=== PATIENT | female | born 1935 | race Caucasian/White ===

== ENCOUNTER 2017-10-19 14:13 | Inpatient (IN) | payer MEDICARE, OTHER ==
[2017-10-19] MEDS ORDERED: Acetaminophen 325 MG TAB ONE (15:32)
[2017-10-19 17:10] LABS: Troponin I Less than 0.010 ng/mL (< 0.028)
--- NOTE | 2017-10-19 17:40 | HP ---
PRIMARY CARE PHYSICIAN: Deric Coates M.D. CHIEF COMPLAINT: Left arm and left weakness with difficulty with her speech. HISTORY OF PRESENTING ILLNESS: Ms. Mckay is a very pleasant 82-year-old female who volunteers at [facility], was brought in by her family with the above-mentioned complaints. History is mainly obtained by the patient herself who was rather reluctant historian. It is supplemented by her son present in the room. Electronic medical records have been reviewed. According to Ms. Mckay, she has been feeling fine and she does not think that she had any weakness in her arm or leg. Her son reports that the staff at the [facility] noticed that she was draggi ng her left leg and later she was found to have difficulty raising her left arm. She was also found to have difficulty reading the sentence from a text book. She was brought to [facility] and she was found to be hemodynamically stable there. She underwent a CT scan of the head which did not show any acute changes and she was transferred to our facility for further evaluation. The david ent denies any prior symptoms. She denies any recent illnesses. She denies any problems with her sp eech or swallowing or any muscle weakness or paraesthesias. Her son does report that she was complai mitzy of some left arm tingling. Upon presentation to [facility], her NIH score was 4. She was given 325 mg of aspirin a nd 1 liter of IV fluids prior to her transfer over here. She is now being admitted for further ca p. Her symptoms have almost completely resolved. Her son does noticed that she might still have a l ittle bit of facial droop. She will be admitted to the stroke floor for CVA/TIA workup. PAST MEDICAL HISTORY: Hypertension, dyslipidemia, history of overactive bladder. PAST SURGICAL HISTORY: 1. Pubovaginal sling with anterior repair and cystoscopy. 2. section. PSYCHIATRIC HISTORY: Anxiety. SOCIAL HISTORY: She lives with her son. 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 She is very active and independent with her ADLs and IADLs. No history of drug, tobacco or alcohol abuse. FAMILY HISTORY: No significant family history of stroke according to the patient. No premature eduar nary artery disease. ALLERGIES: No known medication allergies. CURRENT MEDICATIONS: Include aspirin 81 mg daily, verapamil 300 mg daily, Myrbetriq 25 mg daily, ser traline 50 mg a day, pramipexole 1 mg at bedtime, simvastatin 10 mg daily. REVIEW OF SYSTEMS: The following complete review of systems was negative, unless otherwise mentioned in the HPI or below: Constitutional: Weight loss or gain, ability to conduct usual activities. Skin: Rash, itching. Eyes: Double vision, pain. ENT/Mouth: Nose bleeding, neck stiffness, pain, tenderness. Cardiovascular: Palpitations, dyspnea on exertion, orthopnea. Respiratory: Shortness of breath, wheezing, cough, hemoptysis, fever or night sweats. Gastrointestinal: Poor appetite, abdominal pain, heartburn, nausea, vomiting, constipation, or diarr hea. Genitourinary: Urgency, frequency, dysuria, nocturia. Musculoskeletal: Pain, swelling. Neurologic/Psychiatric: Anxiety, depression. Allergy/Immunologic: Skin rash, bleeding tendency. It is negative except for those mentioned in the history and physical. LABORATORY DATA AND IMAGIN. CBC shows WBCs at 6 with 72% neutrophils, hemoglobin is 12.6, hematocrit 36.6, platelet count of 233. PT, PTT and INR within normal limits. 2. Serum chemistry showed blood sugar at 145, otherwise unremarkable. Cardiac enzymes are within no rmal limits. 3. CT scan of the brain done in [facility] reviewed by myself does not show any evidenc e of hemorrhage or acute infarction. 4. Chest x-ray by my review has no evidence of pulmonary edema, infiltrate or effusions. 5. A 12-lead EKG by my review shows slow RV progression with normal sinus rhythm at 71 beats per min iqugmiut. PHYSICAL EXAMINATION: VITAL SIGNS: Upon presentation include blood pressure 137/68, pulse 80, respirations 18, saturating 97% on room air. GENERAL: No acute distress, awake, alert, oriented x3. The patient does appear somewhat slow. It i s difficult to ascertain whether this is voluntary or because of the effects of possible stroke. HEENT: Mucous membrane is moist and pink. No oropharyngeal exudate or erythema. Head is normocepha lic, atraumatic. Pupils are equal and reactive to light and accommodation. Extraocular movements in tact. NECK: Supple without any lymphadenopathy, JVD or bruit. CHEST: Clear to auscultation without any wheezing, rales or rhonchi. Rate and rhythm is regular wit hout any murmur, rubs or gallops. ABDOMEN: Soft, nontender, nondistended, positive bowel sounds. NEUROLOGIC: Cranial nerves II-XII are grossly intact. No sensory deficits noticed. No facial droop apparent to myself. She was noted to have left arm drift in the [facility] which has r esolved. Muscle strength is 5/5 in all 4 extremities. Lujjvr-dt-eoiw testing is intact bilaterally. The patient was noticed to have left-sided neglect in the [facility]. SKIN: Free of any rashes or bruises. Feels warm and dry to touch. PSYCHIATRIC: Normal affect. IMPRESSION AND PLAN: 1. Transient ischemic attack. The patient's symptoms are quite consistent with a transient ischemic attack. At this time, she will be admitted to the stroke floor for further workup. We will order a n MRI of her brain as well as transthoracic echocardiogram and carotid ultrasound. We will request S troke Team and Neurology evaluation as well. Frequent neuro checks have been ordered. She will be c ontinued on full dose aspirin and we will add statin as well. We will also order lipid panel. Fall and aspiration precautions will be monitored. The patient has passed a bedside swallow at this time. 2. History of hypertension. At this time, we will hold verapamil to allow for permissive hypertensi on. Monitor blood pressure closely. 3. History of restless leg syndrome. Continue with her home medication of pramipexole for now. 4. Deep venous thrombosis and gastrointestinal prophylaxis. 5. Code status: FULL CODE. Discussed with the patient and her son present in the room. 6. Add p.r.n. medication orders. 7. Disposition: The patient is currently being admitted under observation status for transient isch emic attack/cerebrovascular accident workup. Further management will depend upon her clinical course and results of these studies as mentioned above.
[2017-10-19 20:00] LABS: Troponin I Less than 0.010 ng/mL (< 0.028)
--- NOTE | 2017-10-19 20:44 | CT ---
NONCONTRAST HEAD CT: Comparison: 10-19-17 at 12:04 p.m. Technique: Noncontrast head CT is performed from skull base to skull vertex. FINDINGS: No parenchymal hemorrhage. No extraaxial hematoma. No midline shift. Basilar cisterns are patent. Brain volume is age appropriate. Cortical howe white matter differentiation is preserved. Ventricles and sulci are patent and symmetric. White matter hypodensities due to chronic small vessel ischemic changes are noted. Calvarium is intact. Adequate aeration of the sinuses and mastoid air cells. Common carotid atheroscl erosis is identified. IMPRESSION: 1. No acute intracranial process. 2. No significant interval change. 3. Results of study discussed with Dr. Han 10-19-17 at 8:05 p.m. Marie CR. POS: EMANUEL
[2017-10-19] MEDS ORDERED: hydrALAZINE 20 MG/ML VIAL SLOW IVP PRN (20:49)
[2017-10-19] MEDS ORDERED: Diabetic Tussin 200 MG/10 ML UDCUP PO PRN (20:49)
[2017-10-19] MEDS ORDERED: Senokot 8.6 MG TAB PO PRN (20:49)
[2017-10-19] MEDS ORDERED: Benzonatate 100 MG CAP PO PRN (20:49)
[2017-10-19] MEDS ORDERED: traMADol HCl 50 MG TAB PO PRN (20:49)
[2017-10-19] MEDS ORDERED: Nitroglycerin 0.4 MG TAB (25 Tab Bottle) SL PRN (20:49)
[2017-10-19] MEDS ORDERED: Mag-Al 1200 mg/1200 mg/30 ML UDCUP PO PRN (20:49)
[2017-10-19] MEDS ORDERED: Acetaminophen 325 MG TAB PO PRN (20:49)
[2017-10-19] MEDS ORDERED: Bisacodyl 5 MG TAB PO PRN (20:49)
[2017-10-19] MEDS ORDERED: Loratadine 10 MG TAB PO PRN (20:49)
[2017-10-19] MEDS ORDERED: Calcium Carbonate 500 MG ChewTAB PO PRN (20:49)
[2017-10-19] MEDS ORDERED: Ondansetron HCl/PF 4 MG/2 ML Vial IVP PRN (20:49)
[2017-10-19] MEDS: Atorvastatin Calcium 20 MG TAB PO SCH (23:09)
[2017-10-19] MEDS: Pramipexole Di-HCl 1 MG TAB PO SCH (23:09)
[2017-10-20 05:40] LABS: #Eosinphils 0.1 thou/uL (0.0-0.7); #Lymphocytes 1.2 thou/uL (1.20-3.40); #Monocytes 0.4 thou/uL (0.11-0.59); #Neutrophils 3.4 thou/uL (1.40-6.50); %Basophils 0.2 % (0.0-1.0); %Eosinophils 2.2 % (0.0-10.0); %Lymphocytes 23.6 % (21.0-51.0); %Monocytes 8.6 % (0.0-10.0); Hematocrit 36.6 % (36.0-47.0); Mean Platelet Volume 7.3 fL (7.4-10.4); Red Blood Cell (RBC) Count 3.84 mill/uL (4.20-5.40); White Blood Cell (WBC) Count 5.1 thou/uL (4.8-10.8)
[2017-10-20 05:59] LABS: Anion Gap 10 mmol/L (10-20); BUN (Urea Nitrogen) 12 mg/dL (9.8-20.1); Calc. Creatinine Clearance 60 mL/min (70-130); Calcium 8.9 mg/dL (7.8-10.44); Carbon Dioxide 26 mmol/L (23-31); Chloride 108 mmol/L (98-107); Estimated GFR-MDRD 85
--- NOTE | 2017-10-20 08:11 | ULT ---
ULTRASOUND WITH DOPPLER DUPLEX CAROTID: Date: 10-20-17 History: 82-year-old female with TIA. Technique: Grayscale, color flow, and spectral analysis of major arteries of neck. FINDINGS: There is moderate plaque at the proximal right internal carotid artery, including carotid origin, cau sing shadowing and focal stenosis. There is mild, small, multifocal plaque at the distal left common carotid, but not in the left proximal internal carotid. Highest peak systolic velocities in the internal carotid arteries are 270 cm/s on the right, and 85 c m/s on the left. The ICA/CCA ratios are 3.7 on the right and 1.0 on the left. The end diastolic velocities in the internal carotid arteries are 70 cm/s on the right and 20 cm/s on the left. The vertebral artery flow is antegrade bilaterally. IMPRESSION: 1. Atheromatous plaque at the origin of the right internal carotid artery producing high velocities s uggestive of stenosis that is at least moderate, and possibly severe. 2. Consider further evaluation with CT angiogram of the neck with contrast. POS: EMANUEL
[2017-10-20] MEDS ORDERED: Aspirin 325 mg Enteric Coated Tablet PO SCH (09:00)
[2017-10-20] MEDS: Enoxaparin Sodium 40 MG/0.4 ML SYRINGE SC SCH (10:41)
--- NOTE | 2017-10-20 11:09 | CT ---
CT ANGIOGRAM NECK WITH CONTRAST: Date: 10/20/17 HISTORY: 82-year-old female with right internal carotid artery stenosis. Left foot weakness. Possible CVA. TECHNIQUE: IV contrast injection of 100 mL of Isovue-370. Arterial bolus chasing technique scan performed from aortopulmonic window to level of mid orbits. Cor onal and sagittal 3D MIP reconstructions performed. FINDINGS: Multilevel severe degenerative disc disease and severe degenerative facet disease, of the cervical sp ine. Aortic arch: Atherosclerotic calcification without aneurysm or dissection. Brachiocephalic: Moderate calcified plaque without high grade stenosis. Right subclavian: Prominent calcified plaque proximally without high grade stenosis. Mid to distal p ortion obscured by streak artifact from adjacent dense contrast bolus in the right subclavian vein. Left subclavian: Large calcified plaque at origin causing severe stenosis. No high grade stenosis in the rest of the left subclavian. Right common carotid: Tortuous proximal portion. No high grade stenosis. Right internal carotid: As demonstrated on the ultrasound, there is moderately heavy calcified plaqu e at the origin, but this causes only approximately 40% stenosis. Instead, there is an approximately 1.5 cm long segment of proximal right internal carotid artery dist al to the origin which is irregular and narrowed due to noncalcified (soft) plaque. Of this, there is a focal short segment of severe, approximately 75-85%, stenosis caused by the circumferential noncal cified plaque. Distal to this, the rest of the cervical right internal carotid has no high grade sten osis. Left common carotid: Scattered calcified plaque at mid common carotid and distal common carotid. No high grade stenosis. Left internal carotid: Noncalcified plaque at carotid bulb causes mild stenosis at origin. No high g rade stenosis of proximal internal carotid. The distal cervical portion of the left internal carotid artery takes a sharp, acute angle retropharyngeal turn at the C1-2 level, resulting in a kink (rather than plaque) that causes approximately 50% decrease in the transverse diameter of the lumen (best se en on coronal image 45 of 90, series 300). Right vertebral: Dominant. No high grade stenosis. Left vertebral: Proximally diminutive with atherosclerotic irregularity and diffusely moderately sma ll caliber from its origin to approximately the C6 level, distal to which the left vertebral artery c ontinues to have atherosclerotic irregularity, but is slightly larger caliber. IMPRESSION: 1)Severe, approximately 75-80%, stenosis at proximal right internal carotid artery. 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 3)Diffuse mild-moderate stenosis due to diffuse atherosclerotic disease throughout the left proximal vertebral artery. 4)Severe cervical spondylosis. POS: EMANUEL
[2017-10-20] MEDS: cloNIDine 0.1 MG TAB PO PRN (11:30)
[2017-10-20 12:55] LABS: Bilirubin Negative (Negative); Blood, Urine Negative (Negative); Glucose, Urine (Dipstick) Negative (Negative); Ketone, Urine Trace mg/dL (Negative); Nitrite Negative (Negative); Protein, Urine (Dipstick) Negative (Neg-Trace); Urobilinogen 0.2 mg/dL (0.2-1.0)
--- NOTE | 2017-10-20 13:07 | PDOC.PN ---
- Subjective Encounter Start Date: 10/20/17 Encounter Start Time: 13:06 Subjective: feels well.had 1 episode of dysphagia last night prompting Code green -: repeat Brain CT w/o acute chnages. -: pt ate meal w/o difficulty today - Objective MAR Reviewed: Yes Vital Signs & Weight: Vital Signs (12 hours) Temp Pulse Pulse Pulse Resp BP BP 10/20/17 11:30 185/77 H 10/20/17 11:15 97.6 F 80 18 10/20/17 10:45 76 74 182/82 H 10/20/17 10:44 76 74 182/82 H 10/20/17 08:00 98.1 F 90 18 10/20/17 07:10 98.1 F 90 18 10/20/17 04:09 98.4 F 74 16 BP BP Pulse Ox 10/20/17 11:30 10/20/17 11:15 185/77 H 95 10/20/17 10:45 193/93 H 10/20/17 10:44 193/93 H 10/20/17 08:00 10/20/17 07:10 195/75 H 96 10/20/17 04:09 144/61 H 94 L Weight Weight 124 lb 4.8 oz I&O: 10/19/17 10/20/17 10/21/17 06:59 06:59 06:59 Intake Total 70 Balance 70 Result Diagrams: 10/20/17 05:16 10/20/17 05:16 Radiology Reviewed by me: Yes (Carotid -R ICA stenosis.CTA neck-high grade R ICA stenosis) Phys Exam - Physical Examination Constitutional: NAD HEENT: PERRLA, moist MMs, sclera anicteric, oral pharynx no lesions Neck: no nodes, no JVD, supple, full ROM Respiratory: no wheezing, no rales, no rhonchi, clear to auscultation bilateral Cardiovascular: RRR, no significant murmur Gastrointestinal: soft, non-tender, no distention, positive bowel sounds Musculoskeletal: no edema, pulses present Neurological: non-focal, normal sensation, moves all 4 limbs Psychiatric: normal affect, A&O x 3 Skin: no rash Dx/Plan (1) TIA (transient ischemic attack) Status: Acute (2) HTN (hypertension) Code(s): I10 - ESSENTIAL (PRIMARY) HYPERTENSION Status: Chronic (3) HLD (hyperlipidemia) Code(s): E78.5 - HYPERLIPIDEMIA, UNSPECIFIED Status: Chronic - Plan cont ASA,statin.MRI pending. -: Consult CTS for R ICA stenosis.Likley Left cortical CVA -: Cont BP monitoring.Verapamil on hold for permissive HTN -: prn meds on board.hemodynamically stable. -: Neurology recs requested * . Review of Systems - Review of Systems Constitutional: negative: Fever, Chills, Sweats, Weakness, Malaise, Other Respiratory: negative: Cough, Dry, Shortness of Breath, Hemoptysis, SOB with Excertion, Pleuritic Pain, Sputum, Wheezing Cardiovascular: negative: Chest Pain, Palpitations, Orthopnea, Paroxysmal Noc. Dyspnea, Edema, Light Headedness, Other Gastrointestinal: negative: Nausea, Vomiting, Abdominal Pain, Diarrhea, Constipation, Melena, Hematochezia, Other Genitourinary: negative: Dysuria, Frequency, Incontinence, Hematuria, Retention , Other Musculoskeletal: negative: Neck Pain, Shoulder Pain, Arm Pain, Back Pain, Hand Pain, Leg Pain, Foot Pain, Other Neurological: negative: Weakness, Numbness, Incoordination, Change in Speech, Confusion, Seizures, Other - Medications/Allergies Allergies/Adverse Reactions: Allergies Allergy/AdvReac Type Severity Reaction Status Date / Time No Known Allergies Allergy Verified 10/20/17 04:31 Medications: Current Medications Acetaminophen (Tylenol) 650 mg PO Q4H PRN PRN Reason: Headache/Fever or Pain Al Hydroxide/Mg Hydroxide (Maalox) 30 ml PO Q6H PRN PRN Reason: Heartburn or Indigestion Aspirin (Ecotrin) 325 mg PO DAILY [facility] Last Admin: 10/20/17 10:40 Dose: 325 mg Atorvastatin Calcium (Lipitor) 20 mg PO HS [facility] Last Admin: 10/19/17 23:09 Dose: Not Given Benzonatate (Tessalon) 100 mg PO Q4H PRN PRN Reason: Cough Bisacodyl (Dulcolax) 10 mg PO DAILYPRN PRN PRN Reason: Constipation Calcium Carbonate (Tums) 1,000 mg PO Q4H PRN PRN Reason: Heartburn or Indigestion Clonidine (Catapres) 0.1 mg PO Q4H PRN PRN Reason: Systolic BP > 180 Last Admin: 10/20/17 11:30 Dose: 0.1 mg Enoxaparin Sodium (Lovenox) 40 mg SC 0900 [facility] Last Admin: 10/20/17 10:41 Dose: 40 mg Guaifenesin (Robitussin Sf) 200 mg PO Q4H PRN PRN Reason: Cough Hydralazine HCl (Apresoline) 10 mg SLOW IVP Q4H PRN PRN Reason: Systolic BP > 180 Influenza Virus Vaccine (Fluzone High-Dose 2016- Syr) 0.5 ml IM .ONCE ONE Stop: 10/21/17 09:01 Loratadine (Claritin) 10 mg PO DAILYPRN PRN PRN Reason: Sinus Symptoms Mirabegron (Myrbetriq Er) 25 mg PO DAILY [facility] Last Admin: 10/20/17 12:31 Dose: 25 mg Nitroglycerin (Nitrostat) 0.4 mg SL Q5MIN PRN PRN Reason: Chest Pain Ondansetron HCl (Zofran) 4 mg IVP Q6H PRN PRN Reason: Nausea/Vomiting Pneumococcal Polyvalent Vaccine (Pneumovax 23) 0.5 ml IM .ONCE ONE Stop: 10/21/17 09:01 Pramipexole Dihydrochloride (Mirapex) 1 mg PO HS [facility] Last Admin: 10/19/17 23:09 Dose: Not Given Senna (Senokot) 2 tab PO HSPRN PRN PRN Reason: Constipation Sertraline HCl (Zoloft) 50 mg PO DAILY [facility] Last Admin: 10/20/17 10:39 Dose: 50 mg Tramadol HCl (Ultram) 50 mg PO Q4H PRN PRN Reason: Moderate Pain (4-6)
[2017-10-20] MEDS ORDERED: Iopamidol 370 76% 100 ML VIAL ONE (14:00)
--- NOTE | 2017-10-20 16:20 | MRI ---
MRI OF BRAIN WITHOUT CONTRAST 10/20/17 Multiplanar and multisequential imaging of the brain obtained. HISTORY: TIA. Confusion. FINDINGS: Mild cortical atrophy. Moderately severe chronic ischemic white matter changes. There is ventriculome chris which appears slightly disproportionate to the atrophy. There are numerous foci of restricted diffusion throughout the right cerebral hemisphere. Many of the se are subcortical. Several are deep white matter. There are a few tiny cortical foci as well. In gen eral, these appear to be consistent with watershed type infarcts. These infarcts are related to the r ight internal carotid artery stenosis noted on recent ultrasound. These could represent plaque relate d emboli from the right internal carotid artery. No hemorrhage. IMPRESSION: 1. Numerous tiny infarcts seen in the right cerebral hemisphere. There are some cortical foci se en in the posterior temporal and parietal lobe region on the right. There are subcortical and deep wh ite matter infarcts. These are related to the right internal carotid artery stenosis. Suspect plaque related emboli from this right internal carotid stenosis. 2. Cortical atrophy and moderate severe chronic ischemic white matter change. 3. Mild ventriculomegaly. POS: TPC
[2017-10-20 17:54] VITALS: BMI 20.5
--- NOTE | 2017-10-20 19:53 | CON ---
DATE OF CONSULTATION: 10/20/2017 CONSULTING PHYSICIAN: Hospitalist Service. IMPRESSION: 1. Right thromboembolic stroke secondary to carotid stenosis of 75-85% on the right. 2. Hypertension. 3. Hyperlipidemia. PLAN: 1. Add aspirin. 2. CT surgery follow up for nonemergent carotid endarterectomy. Ms. Mckay is an 82-year-old white female who is quite functional and independent. She developed acut e onset of left-sided weakness that lasted for several hours. She came to the hospital for evaluatio n. Her workup subsequently discovered evidence of some patchy damage in the right MCA territory. He r carotid ultrasound suggested a right carotid stenosis which was followed up by a CTA. This confirm ed evidence of 75-85% stenosis in the right internal carotid artery. She has not had any other TIA s ymptoms in the past. PAST MEDICAL HISTORY: Hypertension. ALLERGIES: None. SOCIAL HISTORY: No tobacco or alcohol use. FAMILY HISTORY: Noncontributory. REVIEW OF SYSTEMS: Only positive for some of sensation of tightness in her throat. PHYSICAL EXAMINATION: GENERAL: She is a healthy appearing elderly lady, appears younger than her age. HEENT: Pupils equal and reactive. Conjunctivae clear. Oropharynx clear. NECK: Supple. EXTREMITIES: No cyanosis. NEUROLOGIC: She is alert and appropriate. Her speech is fluent and clear. Exam is nonfocal. Images were reviewed. LABORATORY STUDIES: Unremarkable CBC and serum chemistries. SUMMARY: Given the evidence of some focal damage, I would not proceed with an urgent carotid endarte rectomy, I suggest waiting at least 2-3 weeks before proceeding. She can continue antiplatelet thera py and I will be happy to follow up with her as an outpatient.
[2017-10-20] MEDS: Atorvastatin Calcium 20 MG TAB PO SCH (21:23)
[2017-10-20] MEDS: Pramipexole Di-HCl 1 MG TAB PO SCH (21:23)
--- NOTE | 2017-10-20 22:24 | CON ---
DATE OF CONSULTATION: 10/20/2017 REASON FOR CONSULTATION: Evaluate patient, status post cerebrovascular accident with right carotid s tenosis. HISTORY OF PRESENT ILLNESS: Ms. Mckay is a delightful 82-year-old woman who was admitted with a hist ory of left leg weakness. She was dragging while walking and was brought to the hospital by her son. CT scan x2 initially were negative. She has had an MRI of her brain, which shows multiple right he mispheric infarcts. Carotid ultrasound has been performed, which shows a peak systolic velocity in t he right internal carotid artery of 270 cm per second. Peak systolic velocity in the left internal c arotid artery is 85 cm per second. This was followed by the CT angiogram, which shows a significant right internal carotid artery stenosis extending up towards the angle of her jaw. Currently, she is asymptomatic. Her leg symptoms have completely resolved. She has no other neurolo gic findings. I have been asked to see her to discuss carotid endarterectomy and medical treatment i n the interim. PAST MEDICAL HISTORY: 1. Hypertension. 2. Dyslipidemia. 3. History of overactive bladder. PAST SURGICAL HISTORY: 1. Bladder suspension. 2. . SOCIAL HISTORY: She lives with her son. She is independent and drives. She does not use any tobacc o or alcohol. ALLERGIES: None. MEDICATIONS AT HOME: 1. Aspirin 81 mg q. day. 2. Verapamil 300 mg q. day. 3. Myrbetriq 25 mg q. day. 4. Sertraline 50 mg q. day. 5. Pramipexole 1 mg at bedtime. 6. Zocor 10 mg q. day. REVIEW OF SYSTEMS: Ten-point review of systems performed and is negative except as stated above. PHYSICAL EXAMINATION: GENERAL: This is a very pleasant elderly woman resting comfortably in bed, post MRI. VITAL SIGNS: Height 5 feet 5 inches, weighs 123 pounds, BSA is 1.60. Temperature is 98.3, pulse is 71 and regular, blood pressure is 159/67. HEENT: Sclerae nonicteric. Pupils are equal and round bilaterally. NECK: There is no adenopathy. She has a right carotid bruit. CHEST: Clear bilaterally. HEART: Rhythm is regular, without murmur. ABDOMEN: Soft and nontender with no mass. EXTREMITIES: No cyanosis, clubbing or edema. VASCULAR: She has palpable carotid, radial, femoral and dorsalis pedis bilaterally. VENOUS: There are no venous varicosities or venous stasis changes. PSYCHIATRIC: The patient is awake, alert and oriented to person, place and time. NEUROLOGIC: There are no motor or sensory deficits on my exam. ASSESSMENT AND PLAN: This is a very pleasant 82-year-old woman, status post cerebrovascular accident in the right hemispheric. She has a right carotid stenosis by CT angiogram. I would recommend aspi rin 81 mg q. day, Plavix 75 mg q. day and a statin. These have all been started. I will see her jeniffer k in 2-3 weeks in the office. If she has continued to do well, we will plan on carotid endarterectom y at that time.
[2017-10-21] MEDS: cloNIDine 0.1 MG TAB PO PRN (05:25)
[2017-10-21] MEDS ORDERED: FLU VACC TS2017-18 (>65YR) 0.5 ML SYRINGE IM ONE (09:00)
[2017-10-21] MEDS ORDERED: Clopidogrel Bisulfate 75 MG TAB PO SCH (09:00)
[2017-10-21] MEDS ORDERED: Aspirin 81 mg Enteric Coated Tablet PO SCH (09:00)
[2017-10-21] MEDS: Enoxaparin Sodium 40 MG/0.4 ML SYRINGE SC SCH (09:09)
--- NOTE | 2017-10-21 13:05 | PDOC.PN ---
- Subjective Encounter Start Date: 10/21/17 Encounter Start Time: 07:00 Pt seen for followup re: ischemic CVA. Denies chest pain, shortness of breath, fevers or chills. - Objective MAR Reviewed: Yes Vital Signs & Weight: Vital Signs (12 hours) Temp Pulse Resp BP BP Pulse Ox 10/21/17 11:05 98.1 F 76 18 142/70 H 95 10/21/17 07:10 97.9 F 84 18 149/57 H 96 10/21/17 05:25 183/62 H 10/21/17 03:39 99.1 F 92 18 183/62 H 93 L Weight Weight 123 lb 6.4 oz I&O: 10/20/17 10/21/17 10/22/17 06:59 06:59 06:59 Intake Total 970 Balance 970 Result Diagrams: 10/20/17 05:16 10/20/17 05:16 EKG Reviewed by me: Yes (Tele: NSR) Phys Exam - Physical Examination Constitutional: NAD HEENT: moist MMs, oral pharynx no lesions Neck: supple Respiratory: clear to auscultation bilateral Cardiovascular: RRR Gastrointestinal: soft, non-tender Musculoskeletal: pulses present Neurological: moves all 4 limbs Psychiatric: normal affect Skin: no rash Dx/Plan (1) Ischemic cerebrovascular accident (CVA) Code(s): I63.9 - CEREBRAL INFARCTION, UNSPECIFIED Status: Acute (2) Carotid stenosis Code(s): I65.29 - OCCLUSION AND STENOSIS OF UNSPECIFIED CAROTID ARTERY Status : Acute (3) HLD (hyperlipidemia) Code(s): E78.5 - HYPERLIPIDEMIA, UNSPECIFIED Status: Chronic (4) HTN (hypertension) Code(s): I10 - ESSENTIAL (PRIMARY) HYPERTENSION Status: Chronic - Plan plan discussed w/ family, PT/OT, out of bed/ambulate, DVT proph w/lovenox * . Continue aspirin, plavix and statin. Monitor vital signs, titrate antihypertensives as needed. To followup with CV surgery as outpatient. Rehab eval. Review of Systems - Review of Systems Respiratory: negative: Cough, Dry, Shortness of Breath, Hemoptysis, SOB with Excertion, Pleuritic Pain, Sputum, Wheezing Cardiovascular: negative: Chest Pain, Palpitations, Orthopnea, Paroxysmal Noc. Dyspnea, Edema, Light Headedness Neurological: negative: Weakness, Numbness, Incoordination, Change in Speech, Confusion, Seizures - Medications/Allergies Allergies/Adverse Reactions: Allergies Allergy/AdvReac Type Severity Reaction Status Date / Time No Known Allergies Allergy Verified 10/20/17 04:31 Medications: Current Medications Acetaminophen (Tylenol) 650 mg PO Q4H PRN PRN Reason: Headache/Fever or Pain Al Hydroxide/Mg Hydroxide (Maalox) 30 ml PO Q6H PRN PRN Reason: Heartburn or Indigestion Aspirin (Ecotrin) 81 mg PO DAILY [facility] Last Admin: 10/21/17 09:09 Dose: 81 mg Atorvastatin Calcium (Lipitor) 20 mg PO HS [facility] Last Admin: 10/20/17 21:23 Dose: 20 mg Benzonatate (Tessalon) 100 mg PO Q4H PRN PRN Reason: Cough Bisacodyl (Dulcolax) 10 mg PO DAILYPRN PRN PRN Reason: Constipation Calcium Carbonate (Tums) 1,000 mg PO Q4H PRN PRN Reason: Heartburn or Indigestion Clonidine (Catapres) 0.1 mg PO Q4H PRN PRN Reason: Systolic BP > 180 Last Admin: 10/21/17 05:25 Dose: 0.1 mg Clopidogrel Bisulfate (Plavix) 75 mg PO DAILY [facility] Last Admin: 10/21/17 09:09 Dose: 75 mg Enoxaparin Sodium (Lovenox) 40 mg SC 0900 [facility] Last Admin: 10/21/17 09:09 Dose: 40 mg Guaifenesin (Robitussin Sf) 200 mg PO Q4H PRN PRN Reason: Cough Hydralazine HCl (Apresoline) 10 mg SLOW IVP Q4H PRN PRN Reason: Systolic BP > 180 Loratadine (Claritin) 10 mg PO DAILYPRN PRN PRN Reason: Sinus Symptoms Mirabegron (Myrbetriq Er) 25 mg PO DAILY [facility] Last Admin: 10/21/17 09:10 Dose: 25 mg Nitroglycerin (Nitrostat) 0.4 mg SL Q5MIN PRN PRN Reason: Chest Pain Ondansetron HCl (Zofran) 4 mg IVP Q6H PRN PRN Reason: Nausea/Vomiting Pramipexole Dihydrochloride (Mirapex) 1 mg PO HS [facility] Last Admin: 10/20/17 21:23 Dose: 1 mg Senna (Senokot) 2 tab PO HSPRN PRN PRN Reason: Constipation Sertraline HCl (Zoloft) 50 mg PO DAILY [facility] Last Admin: 10/21/17 09:09 Dose: 50 mg Tramadol HCl (Ultram) 50 mg PO Q4H PRN PRN Reason: Moderate Pain (4-6)
[2017-10-21 15:36] VITALS: BP 149/69; TEMP 97.6
[2017-10-21] MEDS ORDERED: Potassium Chloride 20 MEQ TAB PO SCH (17:00)
--- NOTE | 2017-10-22 06:11 | DIS ---
PRIMARY CARE PHYSICIAN: Deric Coates M.D. DISCHARGE DIAGNOSES: 1. Ischemic cerebrovascular accident. 2. Right internal carotid artery stenosis. CONDITION OF PATIENT AT THE TIME OF DISCHARGE: Stable. I assessed Ms. Mckay on the day of discharge . Please refer to my daily progress note for further information regarding this face to face encount er. CONSULTATIONS DURING THIS HOSPITALIZATION: Neurology, Dr. Roberto Bañuelos and Cardiovascular Surgery, Dena Mckay. DISCHARGE MEDICATIONS: Aspirin 81 mg daily, Lipitor 20 mg at bedtime, Plavix 75 mg daily, mirabegron 25 mg daily, pramipexole 0.25 mg every evening, sertraline 50 mg daily, and verapamil 300 mg daily. HOSPITAL COURSE: Ms. Mckay is a pleasant 82-year-old lady who was admitted to [facility] on 10/19/2017 for left leg and left arm weakness and difficulty with speech. CT scan of the brain on 10/19/2017 done without contrast did not reveal any acute intracranial process. MRI of the brain on 10/20 showed numerous tiny infarcts in the right cerebral hemisphere. She also had some cortical foci seen in the posterior temporal and parietal lobe region on the right. Clot related em boli from right internal carotid stenosis was suspected. CT angiogram of the neck on 10/20 showed se violeta approximately 75%-80% stenosis at proximal right internal carotid artery and severe stenosis at origin of left subclavian artery. She also had diffuse mild to moderate stenosis due to diffuse athe rosclerotic disease throughout the left proximal vertebral artery. She had severe cervical spondylos is. A 2D echocardiogram on 10/20 showed left ventricular ejection fraction of 55%-60%, normal sized left atrium, normal left ventricular size, mild mitral regurgitation, mild tricuspid regurgitation. There was no thrombus in the cardiac chambers. She was started on aspirin, statin and Plavix. She was seen by Cardiovascular Surgery Service. They will follow up with her in 2-3 weeks to plan for surgery as outpatient. She was seen by therapy services. [facility]p at[facility]. During this hospitalization, she had triglycerides 116, cholesterol 169, LDL cholesterol 82, HDL chol esterol 64. Many thanks for allowing me to participate in your patient's care. Please feel free to contact me wi th any questions or concerns. DISCHARGE DESTINATION: [facility]. TOTAL AMOUNT OF TIME SPENT COORDINATING THIS DISCHARGE: 33 minutes. FOLLOWUP RECOMMENDATIONS: With primary care provider, with Neurology, Dr. Bañuelos, and with Cardiova scular Surgery, Dr. Mckay.
== END 2017-10-21 18:54 | DRG 65 ==
LOC: ERS 14:13 → 2SE 16:00 → OBSVTOIN 10-20 17:03
PROVIDERS: ADMIT Internal Medicine; ATTEND Internal Medicine
DX: I63.031 Cerebral infarction due to thrombosis of right carotid artery (principal); G81.94 Hemiplegia, unspecified affecting left nondominant side; I67.2 Cerebral atherosclerosis; I08.1 Rheumatic disorders of both mitral and tricuspid valves; I10 Essential (primary) hypertension; N32.81 Overactive bladder; E78.5 Hyperlipidemia, unspecified; F41.9 Anxiety disorder, unspecified; Z79.82 Long term (current) use of aspirin; M47.812 Spondylosis without myelopathy or radiculopathy, cervical region; R47.81 Slurred speech; R29.810 Facial weakness
CPT/HCPCS: 36415; 70450; 70498; 70551; 80048; 80061; 81003; 85025; 93306; 93880; G8978-GP-CJ; G8979-GP-CH; G8987-GO-CJ; G8988-GO-CH; G8996-GN-CH; G8997-GN-CH; J1650